=== PATIENT | female | born 1985 | race Caucasian/White ===

== ENCOUNTER 2016-08-20 19:19 | Emergency (ER) | payer OTHER ==
--- NOTE | 2016-08-20 21:29 | DIAGNOSTIC IMAGING REPORT ---
PROCEDURE: XR RIBS UNILAT W/PA CHEST-RT INDICATION: PAIN TECHNIQUE: Two views of the right ribs with single PA view chest. COMPARISON: None. FINDINGS: RIGHT RIBS: Osseous structures are normal. No evidence of rib fracture. CHEST: Lungs are clear. Heart and mediastinum are normal. Thorax is normal. IMPRESSION: 1. Negative right ribs. 2. Negative chest.
--- NOTE | 2016-08-20 21:59 | ED ORDER SUMMARY ---
..... Patient: MORRO SERRANO OrderSheet [facility] VisitID: [id number] [place] [address] 31y, F Registration Date/Time: 08/20/2016 ORDER SHEET Weight: 108.8 kg (stated) Allergies: Sulfa Antibiotics GENERAL ORDERS: UA-Culture if indicated Urgent (19:30 08/20/2016 JQuivey R.N. per protocol) (Ack 19:33 CHagerty ER Nuclear Medicine Supervisor) (19:48 RCollier R.N.) Urine Urgent (19:30 08/20/2016 JQuivey R.N. per protocol) (Ack 19:33 CHagerty ER Nuclear Medicine Supervisor) (19:48 RCollier R.N.) CBC w Diff Urgent (19:40 08/20/2016 Darian Roberts) (Ack 19:43 CHagerty ER Nuclear Medicine Supervisor) (19:48 HARDIKollier R.N.) CMP Urgent (19:40 08/20/2016 Darian Roberts) (Ack 19:43 Angelitaerty ER Nuclear Medicine Supervisor) (19:48 RCollier R.N.) Amylase Urgent (19:40 08/20/2016 Darian Roberts) (Ack 19:43 CHagerty ER Nuclear Medicine Supervisor) (19:48 RCollier R.N.) Lipase Urgent (19:40 08/20/2016 Darian Roberts) (Ack 19:43 CHagerty ER Nuclear Medicine Supervisor) (19:48 HARDIKollier R.N.) Ribs Unilat w PA Chest Right Urgent (20:56 08/20/2016 Darian Roberts) (Ack 20:58 Latisha ER Nuclear Medicine Supervisor) (21:22 Nannette R.N.) MEDICATION ORDERS: IV FLUIDS: IV Saline Lock (19:40 08/20/2016 Darian Roberts) (Ack 19:47 HARDIKolldavid R.N.) (20:41 [facility] ORDER SHEET NOTES: [Electronically signed by Venkat David Dr. (21:59 08/20/2016)] [Electronically signed by Oliver Crystal R.N. (22:12 08/20/2016)] [Electronically locked/signed by Oliver Crystal R.N. (22:12 08/20/2016)]
--- NOTE | 2016-08-20 21:59 | ED NURSING NOTES ---
Clinical Report - Nurses [facility] [address] [place] [address] 08/20/2016 19:21 Patient: MORRO SERRANO TRIAGE Triage time 19:30. Acuity: LEVEL 3. Chief Complaint: ABDOMINAL PAIN and (mid-abdominal pain on right side). Alert. No acute distress. --19:36 Roxana Tran R.N. 19:30 08/20/16. BP: 115/85. HR: 73. RR: 16. O2 saturation: 100% on room air. Temp: 98.9 F (oral). Pain level now: 2/10. Pain level at maximum: 7/10. Describes the quality as sharp and well localized. --19:36 Roxana Tran R.N. Weight: 108.8 kg stated. Height/Length: 70 inches Per Patient. BMI: 34.4. --19:32 Roxana Tran R.N. Medications Qsymia Oral (Capsule Extended Release 24 Hour 15-92 mg) 1 capsule, daily, stopped abotu 1 week ago. --19:34 Roxana Tran R.N. ZyrTEC Allergy Oral (Tablet 10 mg) 1 tablet, daily. --19:34 Roxana Tran R.N. Multivital Oral. --19:34 Roxana Tran R.N. Allergies Sulfa Antibiotics.(rash) --19:34 Roxana Tran R.N. History Arrived by private vehicle. Historian: patient. Primary physician (Carl). This started today. Onset. (at about 0930). 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 SOCIAL HX: Never smoker. Occasional alcohol use. No drug use. NUTRITIONAL RISK ASSESSMENT: The nutritional risk assessment revealed no deficiencies. FUNCTIONAL ASSESSMENT: Functional assessment: no impairments noted. --19:36 Roxana Tran R.N. PROBLEMS: Seasonal allergic rhinitis. --19:36 Roxana Tran R.N. ADDITIONAL SURGERIES: Cholecystectomy. Cysectomy. Foot. Hysterectomy. Shoulder Surgery. --19:36 Roxana Tran R.N. Interventions ID band on patient. To treatment room. --19:36 Roxana Tran R.N. PHYSICAL ASSESSMENT Ambulatory to room. Patient gowned. GENERAL / NEURO / PSYCH: Alert. Oriented X 4. Appears in no acute distress. HEENT: Mucous membranes are pink. RESPIRATORY: Respirations not labored. CVS: Capillary refill less than 2 seconds. SKIN: Skin is warm and dry. --19:37 Roxana Tran R.N. NURSING PROGRESS NOTES Head of bed elevated. Two patient identifiers checked. Call light placed in reach. Side rails up x 1. Bed placed in lowest position. Brakes of bed on. --19:37 Roxana Tran R.N. Patient ready for evaluation- chart flagged. --19:37 Roxana Tran R.N. 19:46 08/20/2016 Site #1 started via IV in the right antecubital space with an 20g angiocath, with aseptic technique and good blood return; one attempt. Blood drawn: rainbow set. Labeled in the presence of the patient and sent to the lab. Saline lock flushed with 10 mL saline. --19:48 Roxana Tran R.N. 21:02. Patient walked to CT with tech. --21:02 Oliver Crystal R.N. correction to prior entry -. Patient transported to radiology. --21:03 Oliver Crystal R.N. 21:14. Patient walked back to ED from radiology with tech. --21:22 Oliver Crystal R.N. 22:06. The patient is calm and resting quietly. SKIN: Skin is warm and dry. Skin color within normal limits. --22:11 Oliver Crystal R.N. DISPOSITION / DISCHARGE 22:05 08/20/2016 Site #1 removed upon discharge. Catheter intact. Bandage applied. --22:10 Oliver Crystal R.N. Departure time: 22:09. Condition at departure: stable. No learning barriers present. Discharge instructions provided and reviewed with the patient. Reviewed medication(s) side effects, precautions, dosing and course information. Prescription(s) given to the patient. Patient verbalized understanding. Written instructions provided in Iranian. The patient was discharged home and unaccompanied at time of discharge. She left the Emergency Department ambulatory and via private vehicle. Patient driving. FALL RISK ASSESSMENT: Fall risk assessment completed. No fall risk identified. --22:10 Oliver Crystal R.N. 22:02 08/20/16. BP: 109/72. HR: 62. RR: 14. O2 saturation: 99% on room air. Pain level now: 0/10. --22:10 Oliver Crystal R.N. Locked/Released at 08/20/2016 22:12 by Oliver Crystal R.N.
--- NOTE | 2016-08-20 21:59 | ED CLINICAL REPORT ---
Clinical Report - Physicians/Mid Levels [facility] [address] [place] [address] 08/20/2016 19:21 Patient: MORRO SERRANO Time Seen: 19:24; initial patient contact. Arrived- By private vehicle. Historian- patient. HISTORY OF PRESENT ILLNESS Chief Complaint: FLANK PAIN. At its maximum, severity described as moderate. When seen in the E.D., severity described as moderate. Modifying factors. Not worsened by anything. Not relieved by anything. It is described as "pain" and stabbing. No radiation. It is described as located in the right flank. This started today and is still present (persistent). It was gradual in onset and has been waxing/waning. The patient has had nausea. No loss of appetite, vomiting or diarrhea. Similar symptoms previously: Many times. Recent medical care: Not recently seen/assessed. REVIEW OF SYSTEMS No constipation, difficulty with urination, fever, chest pain or chills. All systems otherwise negative, except as recorded above. PAST HISTORY Seasonal allergic rhinitis. ADDITIONAL SURGERIES: Cholecystectomy. Cysectomy. Foot. Hysterectomy. Shoulder Surgery. SOCIAL HISTORY Never smoker. Occasional alcohol use. No drug use. ADDITIONAL NOTES The nursing notes have been reviewed. PHYSICAL EXAM Vital Signs: 08/20/2016 19:30 BP: 115/85. HR: 73. RR: 16. O2 saturation: 100%. Temp: 98.9 F. Pain level now: 2/10. Have been reviewed as normal. Appearance: Alert. Oriented X3. No acute distress. Eyes: Eyes normal inspection. ENT: Pharynx normal. CVS: Normal heart rate and rhythm. Heart sounds normal. Respiratory: No respiratory distress. Moderate right mid- and posterior chest wall tenderness. The tenderness is well-localized and reproduces the patient's subjective complaint. Breath sounds normal. Abdomen: Soft and nontender. Bowel sounds normal. No organomegaly. No mass. Back: Normal inspection. No CVA tenderness. Skin: Skin warm and dry. Normal skin color. No rash. Neuro: Oriented X 3. LABS, X-RAYS, AND EKG Sternum / Ribs X-rays: (1. Negative right ribs. 2. Negative chest.). Views: right ribs. PA of chest. Technique: good. The X-rays were independently viewed by me, interpreted by the radiologist and discussed with the radiologist. Prior films were not available for comparison. Laboratory Tests: UA-Culture if indicated: (BREANNE: 08/20/2016 19:25) ( [facility] 08/20/2016 19:48) Final results Test Result Flag Units (Reference) URINE COLOR LIGHT YELLOW URINE APPEARANCE CLEAR URINE GLUCOSE NEGATIVE (NEGATIVE) URINE BILIRUBIN NEGATIVE (NEGATIVE) URINE KETONE NEGATIVE (NEGATIVE) URINE SPECIFIC GRAVITY 1.010 (1.010-1.030) URINE PH 7.0 (5.0-8.0) URINE PROTEIN NEGATIVE (NEGATIVE) URINE UROBILINOGEN 0.2 EU/dL (0.2-1.0) URINE NITRITE NEGATIVE (NEGATIVE) URINE BLOOD NEGATIVE (NEGATIVE) URINE LEUK ESTERASE NEGATIVE (NEGATIVE) URINE RBC NONE SEEN rbc/hpf (0-1) URINE WBC RARE wbc/hpf (0-1) URINE EPITHELIAL CELLS 0-1 EPI/hpf (0-5) URINE BACTERIA NONE SEEN (NONE SEEN) URINE COMMENT CULT NOT INDICATED URINE CULTURES ARE SET-UP BASED ON THE FOLLOWING CRITERIA:POSITIVE NITRITEPOSITIVE LEUKOCYTE ESTERASEGREATER THAN 10 WHITE BLOOD CELLSMODERATE (2+) OR GREATER BACTERIA Urine: (BREANNE: 08/20/2016 19:25) ( [facility] 08/20/2016 19:40) Final results Test Result Flag Units (Reference) URINE NEGATIVE CBC w Diff: (BREANNE: 08/20/2016 19:45) ( [facility] 08/20/2016 19:52) Final results Test Result Flag Units (Reference) WHITE BLOOD COUNT 9.7 K/uL (4.5-11.5) RED BLOOD COUNT 4.09 M/uL (4.00-5.20) HEMOGLOBIN 12.4 gm/dL (12.0-16.0) HEMATOCRIT 37.4 % (36.0-46.0) MEAN CELL VOLUME 92 fL (80-100) MEAN CORPUSCULAR HGB 30 pg (26-34) MEAN CORPUSCULAR HGB CONC 33 g/dL (31-37) RED CELL DISTRIBUTION WIDTH 13.5 % (11.6-14.8) PLATELET COUNT 295 K/uL (150-400) NEUTROPHIL % 62.1 % (50-75) LYMPH % 30.6 % (25-40) MONO % 5.9 % (3-14) EOSINOPHIL % 1.0 % (0-4) BASOPHIL % 0.4 % (0-2) CMP: (BREANNE: 08/20/2016 19:45) ( MsgRcvd 08/20/2016 20:05) Final results Test Result Flag Units (Reference) GLUCOSE 100 mg/dL (70-110) BUN 17 mg/dL (7-18) CREATININE 1.1 mg/dL (0.6-1.3) Estimated GFR >60 mL/min Estimated GFR- >60 mL/min Note: Persistent reduction over 3 months in eGFR<60 mL/min/1.73 m2 defines CKD. Patients with eGFR values>=60 mL/min/1.73 m2 may also have CKD if evidence ofpersistent proteinuria. Additional information may be foundat www.kidney.org. SODIUM 140 mmol/L (136-145) POTASSIUM 4.0 mmol/L (3.5-5.1) CHLORIDE 104 mmol/L (98-107) CARBON DIOXIDE 30 mmol/L (21-32) CALCIUM 9.2 mg/dL (8.5-10.1) TOTAL PROTEIN 7.9 g/dL (6.4-8.2) ALBUMIN 3.6 g/dL (3.3-5.0) BILIRUBIN, TOTAL 0.3 mg/dL (0.0-1.0) ALKALINE PHOSPHATASE 91 U/L (46-116) AST (SGOT) 20 U/L (15-37) ALT (SGPT) 31 U/L (12-78) LIPASE 150 U/L (73-393) AMYLASE 51 U/L (25-115) . PROGRESS AND PROCEDURES Disposition: Discharged home in good and improved condition. Condition: good. CLINICAL IMPRESSION Muscle strain of the anterior chest wall. INSTRUCTIONS Your Current Medications: CONTINUE TAKING THE FOLLOWING MEDICATIONS: Multivital Oral. Qsymia Oral : Capsule Extended Release 24 Hour 15-92 mg, 1 capsule daily, Stopped: abotu 1 week ago. ZyrTEC Allergy Oral : Tablet 10 mg, 1 tablet daily. Prescription Medications: Hydrocodone/APAP 5mg / 325mg: take 1 orally every 6 hours as needed for pain. Dispense fifteen (15). No refill. Diclofenac 50 mg tablets: take 1 tablet orally every 8 hours as needed for pain or stiffness. Dispense thirty (30). No refill. Follow-up: Follow up with your doctor in about two days. Call for an appointment. Screening today revealed the patient's blood pressure to be in the pre-hypertensive range. The patient should follow up with a primary care provider for blood pressure management. (Electronically signed by Venkat David Dr. 08/20/2016 21:59)
--- NOTE | 2016-08-20 21:59 | ED ORDER SUMMARY ---
..... Patient: MORRO SERRANO OrderSheet [facility] VisitID: [id number] [place] [address] 31y, F Registration Date/Time: 08/20/2016 ORDER SHEET Weight: 108.8 kg (stated) Allergies: Sulfa Antibiotics GENERAL ORDERS: UA-Culture if indicated Urgent (19:30 08/20/2016 JQuivey R.N. per protocol) (Ack 19:33 CHagerty ER Human Service Technician) (19:48 RCollier R.N.) Urine Urgent (19:30 08/20/2016 JQuivey R.N. per protocol) (Ack 19:33 CHagerty ER Human Service Technician) (19:48 RCollier R.N.) CBC w Diff Urgent (19:40 08/20/2016 Darian Roberts) (Ack 19:43 CHagerty ER Human Service Technician) (19:48 HARDIKollier R.N.) CMP Urgent (19:40 08/20/2016 Darian Roberts) (Ack 19:43 Angelitaerty ER Human Service Technician) (19:48 RCollier R.N.) Amylase Urgent (19:40 08/20/2016 Darian Roberts) (Ack 19:43 CHagerty ER Human Service Technician) (19:48 RCollier R.N.) Lipase Urgent (19:40 08/20/2016 Darian Roberts) (Ack 19:43 CHagerty ER Human Service Technician) (19:48 HARDIKollier R.N.) Ribs Unilat w PA Chest Right Urgent (20:56 08/20/2016 Darian Roberts) (Ack 20:58 Latisha ER Human Service Technician) (21:22 Nannette R.N.) MEDICATION ORDERS: IV FLUIDS: IV Saline Lock (19:40 08/20/2016 Darian Roberts) (Ack 19:47 HARDIKolldavid R.N.) (20:41 [facility] ORDER SHEET NOTES: [Electronically signed by Venkat David Dr. (21:59 08/20/2016)] [Electronically signed by Oliver Crystal R.N. (22:12 08/20/2016)] [Electronically locked/signed by Oliver Crystal R.N. (22:12 08/20/2016)]
--- NOTE | 2016-08-20 21:59 | ED NURSING NOTES ---
Clinical Report - Nurses [facility] [address] [place] [address] 08/20/2016 19:21 Patient: MORRO SERRANO TRIAGE Triage time 19:30. Acuity: LEVEL 3. Chief Complaint: ABDOMINAL PAIN and (mid-abdominal pain on right side). Alert. No acute distress. --19:36 Roxana Tran R.N. 19:30 08/20/16. BP: 115/85. HR: 73. RR: 16. O2 saturation: 100% on room air. Temp: 98.9 F (oral). Pain level now: 2/10. Pain level at maximum: 7/10. Describes the quality as sharp and well localized. --19:36 Roxana Tran R.N. Weight: 108.8 kg stated. Height/Length: 70 inches Per Patient. BMI: 34.4. --19:32 Roxana Tran R.N. Medications Qsymia Oral (Capsule Extended Release 24 Hour 15-92 mg) 1 capsule, daily, stopped abotu 1 week ago. --19:34 Roxana Tran R.N. ZyrTEC Allergy Oral (Tablet 10 mg) 1 tablet, daily. --19:34 Roxana Tran R.N. Multivital Oral. --19:34 Roxana Tran R.N. Allergies Sulfa Antibiotics.(rash) --19:34 Roxana Tran R.N. History Arrived by private vehicle. Historian: patient. Primary physician (Carl). This started today. Onset. (at about 0930). Treatment TEAM TRUCK DRIVER: None. SOCIAL HX: Never smoker. Occasional alcohol use. No drug use. NUTRITIONAL RISK ASSESSMENT: The nutritional risk assessment revealed no deficiencies. FUNCTIONAL ASSESSMENT: Functional assessment: no impairments noted. --19:36 Roxana Tran R.N. PROBLEMS: Seasonal allergic rhinitis. --19:36 Roxana Tran R.N. ADDITIONAL SURGERIES: Cholecystectomy. Cysectomy. Foot. Hysterectomy. Shoulder Surgery. --19:36 Roxana Tran R.N. Interventions ID band on patient. To treatment room. --19:36 Roxana Tran R.N. PHYSICAL ASSESSMENT Ambulatory to room. Patient gowned. GENERAL / NEURO / PSYCH: Alert. Oriented X 4. Appears in no acute distress. HEENT: Mucous membranes are pink. RESPIRATORY: Respirations not labored. CVS: Capillary refill less than 2 seconds. SKIN: Skin is warm and dry. --19:37 Roxana Tran R.N. NURSING PROGRESS NOTES Head of bed elevated. Two patient identifiers checked. Call light placed in reach. Side rails up x 1. Bed placed in lowest position. Brakes of bed on. --19:37 Roxana Tran R.N. Patient ready for evaluation- chart flagged. --19:37 Roxana Tran R.N. 19:46 08/20/2016 Site #1 started via IV in the right antecubital space with an 20g angiocath, with aseptic technique and good blood return; one attempt. Blood drawn: rainbow set. Labeled in the presence of the patient and sent to the lab. Saline lock flushed with 10 mL saline. --19:48 Roxana Tran R.N. 21:02. Patient walked to CT with tech. --21:02 Oliver Crystal R.N. correction to prior entry -. Patient transported to radiology. --21:03 Oliver Crystal R.N. 21:14. Patient walked back to ED from radiology with tech. --21:22 Oliver Crystal R.N. 22:06. The patient is calm and resting quietly. SKIN: Skin is warm and dry. Skin color within normal limits. --22:11 Oliver Crystal R.N. DISPOSITION / DISCHARGE 22:05 08/20/2016 Site #1 removed upon discharge. Catheter intact. Bandage applied. --22:10 Oliver Crystal R.N. Departure time: 22:09. Condition at departure: stable. No learning barriers present. Discharge instructions provided and reviewed with the patient. Reviewed medication(s) side effects, precautions, dosing and course information. Prescription(s) given to the patient. Patient verbalized understanding. Written instructions provided in Cambodian. The patient was discharged home and unaccompanied at time of discharge. She left the Emergency Department ambulatory and via private vehicle. Patient driving. FALL RISK ASSESSMENT: Fall risk assessment completed. No fall risk identified. --22:10 Oliver Crystal R.N. 22:02 08/20/16. BP: 109/72. HR: 62. RR: 14. O2 saturation: 99% on room air. Pain level now: 0/10. --22:10 Oliver Crystal R.N. Locked/Released at 08/20/2016 22:12 by Oliver Crystal R.N.
--- NOTE | 2016-08-20 22:12 | ED MED RECONCILIATION SUMMARY ---
Patient: MORRO SERRANO Medication Reconciliation Report [facility] VisitID: [id number] [address] [place] [address] 31y, F Registration Date/Time: 08/20/2016 Weight: 108.8 kg Height/Length: 70 in. BMI: 34.4 ALLERGIES: Sulfa Antibiotics The patient's Home Medications are listed below: CONTINUE TAKING THE FOLLOWING MEDICATIONS: Multivital Oral Qsymia Oral (15-92 mg) 1 capsule, daily ZyrTEC Allergy Oral (10 mg) 1 tablet, daily The source(s) of the original Home Medication information: Not obtained. The following Medications were given to the patient in the Emergency Department: None. The following Medications were prescribed to the patient: Hydrocodone/APAP 5mg / 325mg: take 1 orally every 6 hours as needed for pain. Dispense fifteen (15). No refill. -- Venkat David Dr. Diclofenac 50 mg tablets: take 1 tablet orally every 8 hours as needed for pain or stiffness. Dispense thirty (30). No refill. -- Venkat David Dr.
--- NOTE | 2016-08-20 22:12 | ED DISCHARGE INSTRUCTIONS ---
Patient: MORRO SERRANO General Instructions [facility] VisitID: [id number] [place] [address] 31y, F Registration Date/Time: 08/20/2016 Muscle strain of the anterior chest wall. INSTRUCTIONS Your Current Medications: CONTINUE TAKING THE FOLLOWING MEDICATIONS: Multivital Oral. Qsymia Oral : Capsule Extended Release 24 Hour 15-92 mg, 1 capsule daily, Stopped: abotu 1 week ago. ZyrTEC Allergy Oral : Tablet 10 mg, 1 tablet daily. Prescription Medications: Hydrocodone/APAP 5mg / 325mg: take 1 orally every 6 hours as needed for pain. Dispense fifteen (15). No refill. Diclofenac 50 mg tablets: take 1 tablet orally every 8 hours as needed for pain or stiffness. Dispense thirty (30). No refill. Follow-up: Follow up with your doctor in about two days. Call for an appointment. Screening today revealed the patient's blood pressure to be in the pre-hypertensive range. The patient should follow up with a primary care provider for blood pressure management. ADDITIONAL INFORMATION Chest Strain A strain of the chest is due to stretching and tearing of the muscle fibers between the ribs. This may occur as a result of severe coughing, strenuous lifting or twisting injuries of the upper back. This usually causes increased pain with movement or deep breathing. This may take a few days to a few weeks to heal. Home Care: Rest. Avoid heavy lifting or strenuous exertion. Avoid any activity that causes pain. If you have a severe cough, use a cough syrup such as Robitussin DM (containing dextromethorphan) unless another cough medicine was prescribed. You may use acetaminophen (Tylenol) or ibuprofen (Motrin, Advil) to control pain, unless another medicine was prescribed. [ NOTE: If you have chronic liver or kidney disease or ever had a stomach ulcer or GI bleeding, talk with your doctor before using these medicines.] Follow Up with your doctor as directed. Get Prompt Medical Attention if any of the following occur: A change in the type of pain: if it feels different, becomes more severe, lasts longer, or begins to spread into your shoulder, arm, neck, jaw or back Shortness of breath or increased pain with breathing Cough with dark colored sputum (phlegm) or blood Weakness, dizziness, or fainting Fever of 100.4F (38C) or higher, or as directed by your healthcare provider Hydrocodone Bitartrate, Acetaminophen Oral tablet What is this medicine? ACETAMINOPHEN; HYDROCODONE (a set a ORI dipika fen; adama droe KOE done) is a pain reliever. It is used to treat mild to moderate pain. How should I use this medicine? Take this medicine by mouth. Swallow it with a full glass of water. Follow the directions on the prescription label. If the medicine upsets your stomach, take the medicine with food or milk. Do not take more than you are told to take. Talk to your it support technician regarding the use of this medicine in children. This medicine is not approved for use in children. What side effects may I notice from receiving this medicine? Side effects that you should report to your doctor or health account executive healthcare as soon as possible: allergic reactions like skin rash, itching or hives, swelling of the face, lips, or tongue breathing problems confusion feeling faint or lightheaded, falls stomach pain yellowing of the eyes or skin Side effects that usually do not require medical attention (report to your doctor or health account executive healthcare if they continue or are bothersome): nausea, vomiting stomach upset What may interact with this medicine? alcohol antihistamines isoniazid medicines for depression, anxiety, or psychotic disturbances medicines for sleep muscle relaxants naltrexone narcotic medicines (opiates) for pain phenobarbital ritonavir tramadol What if I miss a dose? If you miss a dose, take it as soon as you can. If it is almost time for your next dose, take only that dose. Do not take double or extra doses. Where should I keep my medicine? Keep out of the reach of children. This medicine can be abused. Keep your medicine in a safe place to protect it from theft. Do not share this medicine with anyone. Selling or giving away this medicine is dangerous and against the law. Store at room temperature between 15 and 30 degrees C (59 and 86 degrees F). Protect from light. Keep container tightly closed. Throw away any unused medicine after the expiration date. Discard unused medicine and used packaging carefully. Pets and children can be harmed if they find used or lost packages. What should I tell my health care provider before I take this medicine? They need to know if you have any of these conditions: brain tumor Crohn's disease, inflammatory bowel disease, or ulcerative colitis drink more than 3 alcohol-containing drinks per day drug abuse or addiction head injury heart or circulation problems kidney disease or problems going to the bathroom liver disease lung disease, asthma, or breathing problems an unusual or allergic reaction to acetaminophen, hydrocodone, other opioid analgesics, other medicines, foods, dyes, or preservatives or trying to get breast-feeding What should I watch for while using this medicine? Tell your doctor or health account executive healthcare if your pain does not go away, if it gets worse, or if you have new or a different type of pain. You may develop tolerance to the medicine. Tolerance means that you will need a higher dose of the medicine for pain relief. Tolerance is normal and is expected if you take the medicine for a long time. Do not suddenly stop taking your medicine because you may develop a severe reaction. Your body becomes used to the medicine. This does NOT mean you are addicted. Addiction is a behavior related to getting and using a drug for a non-medical reason. If you have pain, you have a medical reason to take pain medicine. Your doctor will tell you how much medicine to take. If your doctor wants you to stop the medicine, the dose will be slowly lowered over time to avoid any side effects. You may get drowsy or dizzy when you first start taking the medicine or change doses. Do not drive, use machinery, or do anything that may be dangerous until you know how the medicine affects you. Stand or sit up slowly. There are different types of narcotic medicines (opiates) for pain. If you take more than one type at the same time, you may have more side effects. Give your health care provider a list of all medicines you use. Your doctor will tell you how much medicine to take. Do not take more medicine than directed. Call emergency for help if you have problems breathing. The medicine will cause constipation. Try to have a bowel movement at least every 2 to 3 days. If you do not have a bowel movement for 3 days, call your doctor or health account executive healthcare. Too much acetaminophen can be very dangerous. Do not take Tylenol (acetaminophen) or medicines that contain acetaminophen with this medicine. Many non-prescription medicines contain acetaminophen. Always read the labels carefully. You have been given the following additional information: Chest Wall Strain Hydrocodone Bitartrate, Acetaminophen Oral tablet (Electronically signed by Venkat David Dr. 08/20/2016 21:59)
--- NOTE | 2016-08-20 22:12 | ED MED RECONCILIATION SUMMARY ---
Patient: MORRO SERRANO Medication Reconciliation Report [facility] VisitID: [id number] [address] [place] [address] 31y, F Registration Date/Time: 08/20/2016 Weight: 108.8 kg Height/Length: 70 in. BMI: 34.4 ALLERGIES: Sulfa Antibiotics The patient's Home Medications are listed below: CONTINUE TAKING THE FOLLOWING MEDICATIONS: Multivital Oral Qsymia Oral (15-92 mg) 1 capsule, daily ZyrTEC Allergy Oral (10 mg) 1 tablet, daily The source(s) of the original Home Medication information: Not obtained. The following Medications were given to the patient in the Emergency Department: None. The following Medications were prescribed to the patient: Hydrocodone/APAP 5mg / 325mg: take 1 orally every 6 hours as needed for pain. Dispense fifteen (15). No refill. -- Venkat David Dr. Diclofenac 50 mg tablets: take 1 tablet orally every 8 hours as needed for pain or stiffness. Dispense thirty (30). No refill. -- Venkat David Dr.
--- NOTE | 2016-08-20 22:12 | ED MAR SUMMARY ---
..... Medication Administration Record [address] [place], [place] [id number] Patient: MORRO SERRANO Visit ID: [id number] 31y, F Weight: 108.8 kg Height/Length: 70 in BMI: 34.4 ALLERGIES: Sulfa Antibiotics
--- NOTE | 2016-08-20 22:12 | ED MAR SUMMARY ---
..... Medication Administration Record [facility] [address] [place], [place] [id number] Patient: MORRO SERRANO Visit ID: [id number] 31y, F Weight: 108.8 kg Height/Length: 70 in BMI: 34.4 ALLERGIES: Sulfa Antibiotics
--- NOTE | 2016-08-20 22:12 | ED DISCHARGE INSTRUCTIONS ---
Patient: MORRO SERRANO General Instructions [facility] VisitID: [id number] [place] [address] 31y, F Registration Date/Time: 08/20/2016 Muscle strain of the anterior chest wall. INSTRUCTIONS Your Current Medications: CONTINUE TAKING THE FOLLOWING MEDICATIONS: Multivital Oral. Qsymia Oral : Capsule Extended Release 24 Hour 15-92 mg, 1 capsule daily, Stopped: abotu 1 week ago. ZyrTEC Allergy Oral : Tablet 10 mg, 1 tablet daily. Prescription Medications: Hydrocodone/APAP 5mg / 325mg: take 1 orally every 6 hours as needed for pain. Dispense fifteen (15). No refill. Diclofenac 50 mg tablets: take 1 tablet orally every 8 hours as needed for pain or stiffness. Dispense thirty (30). No refill. Follow-up: Follow up with your doctor in about two days. Call for an appointment. Screening today revealed the patient's blood pressure to be in the pre-hypertensive range. The patient should follow up with a primary care provider for blood pressure management. ADDITIONAL INFORMATION Chest Strain A strain of the chest is due to stretching and tearing of the muscle fibers between the ribs. This may occur as a result of severe coughing, strenuous lifting or twisting injuries of the upper back. This usually causes increased pain with movement or deep breathing. This may take a few days to a few weeks to heal. Home Care: Rest. Avoid heavy lifting or strenuous exertion. Avoid any activity that causes pain. If you have a severe cough, use a cough syrup such as Robitussin DM (containing dextromethorphan) unless another cough medicine was prescribed. You may use acetaminophen (Tylenol) or ibuprofen (Motrin, Advil) to control pain, unless another medicine was prescribed. [ NOTE: If you have chronic liver or kidney disease or ever had a stomach ulcer or GI bleeding, talk with your doctor before using these medicines.] Follow Up with your doctor as directed. Get Prompt Medical Attention if any of the following occur: A change in the type of pain: if it feels different, becomes more severe, lasts longer, or begins to spread into your shoulder, arm, neck, jaw or back Shortness of breath or increased pain with breathing Cough with dark colored sputum (phlegm) or blood Weakness, dizziness, or fainting Fever of 100.4F (38C) or higher, or as directed by your healthcare provider Hydrocodone Bitartrate, Acetaminophen Oral tablet What is this medicine? ACETAMINOPHEN; HYDROCODONE (a set a ORI dipika fen; adama droe KOE done) is a pain reliever. It is used to treat mild to moderate pain. How should I use this medicine? Take this medicine by mouth. Swallow it with a full glass of water. Follow the directions on the prescription label. If the medicine upsets your stomach, take the medicine with food or milk. Do not take more than you are told to take. Talk to your wash box operator regarding the use of this medicine in children. This medicine is not approved for use in children. What side effects may I notice from receiving this medicine? Side effects that you should report to your doctor or health weekend caregiver as soon as possible: allergic reactions like skin rash, itching or hives, swelling of the face, lips, or tongue breathing problems confusion feeling faint or lightheaded, falls stomach pain yellowing of the eyes or skin Side effects that usually do not require medical attention (report to your doctor or health weekend caregiver if they continue or are bothersome): nausea, vomiting stomach upset What may interact with this medicine? alcohol antihistamines isoniazid medicines for depression, anxiety, or psychotic disturbances medicines for sleep muscle relaxants naltrexone narcotic medicines (opiates) for pain phenobarbital ritonavir tramadol What if I miss a dose? If you miss a dose, take it as soon as you can. If it is almost time for your next dose, take only that dose. Do not take double or extra doses. Where should I keep my medicine? Keep out of the reach of children. This medicine can be abused. Keep your medicine in a safe place to protect it from theft. Do not share this medicine with anyone. Selling or giving away this medicine is dangerous and against the law. Store at room temperature between 15 and 30 degrees C (59 and 86 degrees F). Protect from light. Keep container tightly closed. Throw away any unused medicine after the expiration date. Discard unused medicine and used packaging carefully. Pets and children can be harmed if they find used or lost packages. What should I tell my health care provider before I take this medicine? They need to know if you have any of these conditions: brain tumor Crohn's disease, inflammatory bowel disease, or ulcerative colitis drink more than 3 alcohol-containing drinks per day drug abuse or addiction head injury heart or circulation problems kidney disease or problems going to the bathroom liver disease lung disease, asthma, or breathing problems an unusual or allergic reaction to acetaminophen, hydrocodone, other opioid analgesics, other medicines, foods, dyes, or preservatives or trying to get breast-feeding What should I watch for while using this medicine? Tell your doctor or health weekend caregiver if your pain does not go away, if it gets worse, or if you have new or a different type of pain. You may develop tolerance to the medicine. Tolerance means that you will need a higher dose of the medicine for pain relief. Tolerance is normal and is expected if you take the medicine for a long time. Do not suddenly stop taking your medicine because you may develop a severe reaction. Your body becomes used to the medicine. This does NOT mean you are addicted. Addiction is a behavior related to getting and using a drug for a non-medical reason. If you have pain, you have a medical reason to take pain medicine. Your doctor will tell you how much medicine to take. If your doctor wants you to stop the medicine, the dose will be slowly lowered over time to avoid any side effects. You may get drowsy or dizzy when you first start taking the medicine or change doses. Do not drive, use machinery, or do anything that may be dangerous until you know how the medicine affects you. Stand or sit up slowly. There are different types of narcotic medicines (opiates) for pain. If you take more than one type at the same time, you may have more side effects. Give your health care provider a list of all medicines you use. Your doctor will tell you how much medicine to take. Do not take more medicine than directed. Call emergency for help if you have problems breathing. The medicine will cause constipation. Try to have a bowel movement at least every 2 to 3 days. If you do not have a bowel movement for 3 days, call your doctor or health weekend caregiver. Too much acetaminophen can be very dangerous. Do not take Tylenol (acetaminophen) or medicines that contain acetaminophen with this medicine. Many non-prescription medicines contain acetaminophen. Always read the labels carefully. You have been given the following additional information: Chest Wall Strain Hydrocodone Bitartrate, Acetaminophen Oral tablet (Electronically signed by Venkat David Dr. 08/20/2016 21:59)
== END 2016-08-20 22:09 | disposition home or self-care (01) ==
LOC: ED SRH 19:19
DX: S29.011A Strain of muscle and tendon of front wall of thorax, initial encounter (principal)